=== PATIENT | male | born 1960 | race Caucasian/White ===

== ENCOUNTER 2020-04-16 14:41 | Inpatient (IN) | payer MEDICARE ==
[~2020-04-16] VITALS: Ht 195.6 cm; Wt 108.9 kg
[2020-04-16] MEDS ORDERED: TDAP [DIPH/PERTUSSIS/TET] 0.5 ML VIAL IM ONE ×2 (14:46→15:00)
[2020-04-16] MEDS ORDERED: IV NS 0.9% 1,000 ML BAG IV ONE (15:00)
[2020-04-16 15:05] LABS: BASOPHILS # (AUTO) 0.1 /CMM (0.0-0.2); BASOPHILS % (AUTO) 1.7 % (0.0-2.0); EOSINOPHILS % (AUTO) 2.4 % (0.0-6.0); HEMATOCRIT 44 % (39-51); HEMOGLOBIN 14.5 g/dL (13.5-17.5); LYMPHOCYTES # (AUTO) 2.2 /CMM (0.8-4.8); MEAN CORPUSCULAR HGB CONC 33 g/dl (31.0-36.0); MEAN CORPUSCULAR VOLUME 95 fL (80-96); MONOCYTES # (AUTO) 0.3 /CMM (0.1-1.30); MONOCYTES % (AUTO) 4.1 % (2.0-12.0); NEUTROPHILS # (AUTO) 4.3 /CMM (1.8-8.9); NEUTROPHILS % (AUTO) 60.8 % (43.0-81.0); PLATELET COUNT (AUTO) 192 /CMM (150-450); RED BLOOD CELL COUNT(AUTO) 4.69 MIL/uL (4.5-6.0)
[2020-04-16 15:10] LABS: CARBON DIOXIDE 27 mmol/L (21-32); CHLORIDE 105 mmol/L (98-107); CREATININE 1.1 mg/dL (0.6-1.3); GLUCOSE 97 mg/dL (74-106); POTASSIUM 3.6 mmol/L (3.5-5.1); SODIUM SERUM 141 mmol/L (136-145); UREA NITROGEN, BLOOD 15 mg/dL (7-18)
--- NOTE | 2020-04-16 15:10 | NUR ---
BIB [facility], SYNCOPAL EPISODE IN A [employer], LACERATION TO LEFT EYEBROW. PT AAOX3, VSS. RR EVEN & UNLABORED. DENIES CP, SOB, DIZZINESS, N/V, WEAKNESS, [place] AT THIS TIME. PT SEEN & EVAL'D BY DR. FUCHS. WILL CONT TO MONITOR.
--- NOTE | 2020-04-16 15:12 | NUR ---
PT TO CT VIA [facility].
--- NOTE | 2020-04-16 15:37 | NUR ---
GIVEN A SANDWICH WITH OJ PER ERMD ORDER. ACCUCHECK: 59 MG/DL
[2020-04-16] MEDS ORDERED: IV NS 0.9% 1,000 ML IV ONE (17:30)
[2020-04-16] MEDS ORDERED: IV NS 0.9% 1,000 ML IV PRN (17:33)
[2020-04-16] MEDS ORDERED: MAG HYDROX/AL HYDROX/SIMETH 30 ML UDC PO PRN (18:00)
[2020-04-16] MEDS ORDERED: MAGNESIUM HYDROXIDE 30 ML UDC PO PRN (18:00)
[2020-04-16] MEDS ORDERED: ONDANSETRON HCL/PF 4 MG/2 ML VIAL IVP PRN (18:00)
[2020-04-16] MEDS ORDERED: Z GUARD REMEDY 2 OZ OINT TP PRN (18:00)
[2020-04-16] MEDS ORDERED: ACETAMINOPHEN 325 MG TABLET PO PRN (18:00)
--- NOTE | 2020-04-16 18:04 | NUR ---
REPORT GIVEN TO ARMANDO DIAZ.
--- NOTE | 2020-04-16 20:12 | NUR ---
PT REFUSED TO STAY IN THE HOSPITAL. PT SIGNED AMA FORM. DR. HARPER AWARE & OK'D IT. IV removed. Catheter intact and site benign. Pressure and 4x4 applied to site. No bleeding noted.
[2020-04-16 20:16] VITALS: BP 114/63
== END 2020-04-17 20:12 | disposition left against medical advice (07) | DRG 86 ==
LOC: ER 14:46 → TELE1 17:44 → TELE 18:43 → TELE1 18:51
PROVIDERS: ADMIT Internal Medicine; ATTEND Internal Medicine
DX: S02.85XA Fracture of orbit, unspecified, initial encounter for closed fracture (principal); S02.40FA Zygomatic fracture, left side, initial encounter for closed fracture; G90.8 Other disorders of autonomic nervous system; I95.1 Orthostatic hypotension; W18.30XA Fall on same level, unspecified, initial encounter; E16.2 Hypoglycemia, unspecified; X58.XXXA Exposure to other specified factors, initial encounter; Y92.89 Other specified places as the place of occurrence of the external cause; Z98.890 Other specified postprocedural states; Z86.79 Personal history of other diseases of the circulatory system; Z88.0 Allergy status to penicillin; G93.89 Other specified disorders of brain; S00.83XA Contusion of other part of head, initial encounter
CPT/HCPCS: 36415; 70450-TC; 71045-TC; 80048-TC; 82962-TC; 84484-TC; 85025-TC; 85730-TC; 87081-TC; 90715; G0378; G0480; J7030